=== PATIENT | male | born 1970 | race Caucasian/White ===

== ENCOUNTER 2022-09-08 16:23 | Emergency (ER) | payer OTHER ==
[~2022-09-08] VITALS: Ht 172.7 cm; Wt 65.8 kg
[2022-09-08 16:25] VITALS: BP_SYST 119
--- NOTE | 2022-09-08 17:01 | NUR ---
RECEIVED PT FROM JASVIR ESPINAL. PT BIBS WITH C/O FEVER AND PRODUCTIVE COUGH. PT WAS DX WITH INFLUENZA A ON 04/07 AND HAS TAKEN TAMILFU. RR 24, HR 112, TEMP 100.8F COOLING MEASURES IN PLACED, DENIES PAIN. SIDERAILS UP X2.
--- NOTE | 2022-09-08 17:10 | NUR ---
DR. GUTIERREZ AT BEDSIDE TO ASSESS PT.
[2022-09-08] MEDS ORDERED: ACETAMINOPHEN 500 MG TABLET ONE (17:15)
[2022-09-08] MEDS ORDERED: ASPIRIN 81 MG TAB.CHEW PO ONE (17:45)
--- NOTE | 2022-09-08 18:00 | NUR ---
# 20 gauge angiocath placed to RAC. Use of asceptic technique. Opsite placed over site. Blood return noted. Blood for lab drawn from site. Flushed with 10 cc of normal saline. No evidence of infiltration noted. Patient tolerated well.
[2022-09-08 18:15] LABS: BASOPHILS % (AUTO) 0.3 % (0.0-2.0); EOSINOPHILS % (AUTO) 0.5 % (0.0-4.0); HEMATOCRIT 40.7 % (36-54); HEMOGLOBIN 14.4 g/dL (14.0-18.0); LYMPHOCYTES # (AUTO) 1.2 K/uL (1.0-5.5); LYMPHOCYTES % (AUTO) 16.8 % (20.5-51.5); MEAN CORPUSCULAR HEMOGLOBIN 31 pg (27-31); MEAN CORPUSCULAR HGB CONC 35 % (32-36); MEAN CORPUSCULAR VOLUME 87 fL (79.0-98.0); MONOCYTES # (AUTO) 0.6 K/uL (0.0-1.0); NEUTROPHILS # (AUTO) 5.1 K/uL (1.8-7.7); NEUTROPHILS % (AUTO) 73.4 % (40.0-70.0); PLATELET COUNT (AUTO) 198 K/uL (130-430); RED BLOOD CELL COUNT(AUTO) 4.67 MIL/uL (4.2-6.2); RED CELL DISTRIBUTION WIDTH 12.9 % (9.0-15.0); WHITE BLOOD COUNT (AUTO) 6.9 K/uL (4.8-10.8)
--- NOTE | 2022-09-08 18:19 | NUR ---
EKG OBTAINED AND GIVEN TO DR. GUTIERREZ.
[2022-09-08 18:32] LABS: ALANINE AMINOTRANSFERASE 5 U/L (12-78); ALBUMIN 2.8 g/dL (3.4-4.8); ANION GAP 8 (5-15); ASPARTATE AMINOTRANSFERASE 60 U/L (10-37); CALCIUM 8.1 mg/dL (8.4-11.0); CHLORIDE 98 mmol/L (98-107); CREATININE 0.82 mg/dL (0.55-1.30); GFR AFRICAN AMERICAN 127 mL/min (>90); GLUCOSE 99 mg/dL (70-99); TOTAL BILIRUBIN 0.5 mg/dL (0.0-1.0); UREA NITROGEN, BLOOD 11 mg/dL (8-21)
[2022-09-08] MEDS ORDERED: BENZ100C92 PO (18:58)
[2022-09-08] MEDS ORDERED: ACET-2634 PO (18:58)
[2022-09-08 19:14] VITALS: BP_SYST 121
--- NOTE | 2022-09-08 19:17 | NUR ---
Patient given written and verbal discharge instructions and verbalizes understanding. ER MD discussed with patient the results and treatment provided. Patient in stable condition. ID arm band removed. IV catheter removed intact and dressing applied, no active bleeding. Rx of TYLENOL, BENZONATATE given. Patient educated on pain management and to follow up with PMD. Pain Scale 0/10. Opportunity for questions provided and answered. Medication side effect fact sheet provided.
== END 2022-09-08 19:15 | disposition home or self-care (01) ==
LOC: SED 16:23
DX: J10.1 Influenza due to other identified influenza virus with other respiratory manifestations (principal); R05.9 Cough, unspecified; R09.81 Nasal congestion; Z79.899 Other long term (current) drug therapy
CPT/HCPCS: 36415; 71045; 80053; 83880; 84484; 85025; 93005; 99285

== ENCOUNTER 2022-09-12 16:01 | Emergency (ER) | payer OTHER ==
[~2022-09-12] VITALS: Ht 172.7 cm; Wt 68.0 kg
[~2022-09-12 16:01] MED LIST: ACET-2634 PO; BENZ100C92 PO
[2022-09-12 16:09] VITALS: BP_SYST 122
[2022-09-12 17:00] LABS: BASOPHILS # (AUTO) 0.1 K/uL (0.0-0.2); BASOPHILS % (AUTO) 0.9 % (0.0-2.0); EOSINOPHILS # (AUTO) 0.3 K/uL (0.0-0.4); EOSINOPHILS % (AUTO) 2.3 % (0.0-4.0); HEMATOCRIT 39.7 % (36-54); HEMOGLOBIN 13.8 g/dL (14.0-18.0); LYMPHOCYTES # (AUTO) 1.4 K/uL (1.0-5.5); LYMPHOCYTES % (AUTO) 12.3 % (20.5-51.5); MEAN CORPUSCULAR HEMOGLOBIN 31 pg (27-31); MEAN CORPUSCULAR HGB CONC 35 % (32-36); MEAN CORPUSCULAR VOLUME 88 fL (79.0-98.0); MONOCYTES # (AUTO) 1.2 K/uL (0.0-1.0); MONOCYTES % (AUTO) 10.4 % (1.7-9.3); NEUTROPHILS # (AUTO) 8.4 K/uL (1.8-7.7); NEUTROPHILS % (AUTO) 74.1 % (40.0-70.0); PLATELET COUNT (AUTO) 429 K/uL (130-430); RED BLOOD CELL COUNT(AUTO) 4.49 MIL/uL (4.2-6.2); RED CELL DISTRIBUTION WIDTH 12.9 % (9.0-15.0); WHITE BLOOD COUNT (AUTO) 11.3 K/uL (4.8-10.8)
[2022-09-12 17:23] LABS: ANION GAP 6 (5-15); CALCIUM 8.1 mg/dL (8.4-11.0); CHLORIDE 99 mmol/L (98-107); GFR AFRICAN AMERICAN 114 mL/min (>90); GLUCOSE 104 mg/dL (70-99); UREA NITROGEN, BLOOD 9 mg/dL (8-21)
[2022-09-12 17:28] LABS: ALANINE AMINOTRANSFERASE 64 U/L (12-78); ALBUMIN 2.5 g/dL (3.4-4.8); ASPARTATE AMINOTRANSFERASE 39 U/L (10-37); TOTAL BILIRUBIN 0.3 mg/dL (0.0-1.0)
[2022-09-12] MEDS ORDERED: AZITHROMYCIN 250 MG TABLET PO ONE (18:30)
[2022-09-12] MEDS ORDERED: IPRATROPIUM/ALBUTEROL SULFATE 3 ML AMPUL.NEB (DUONEB) INH ONE (18:30)
[2022-09-12] MEDS ORDERED: AMOXICILLIN/POTASSIUM CLAV 875 MG TABLET PO ONE (18:30)
[2022-09-12] MEDS ORDERED: predniSONE 20 MG TABLET PO ONE (18:30)
[2022-09-12] MEDS ORDERED: IBUPROFEN 800 MG TABLET PO ONE (18:30)
[2022-09-12] MEDS ORDERED: ALBMDI INH ×3 (19:36→20:46)
[2022-09-12] MEDS ORDERED: AUG875 PO ×3 (19:36→20:46)
[2022-09-12] MEDS ORDERED: ZIT250 PO ×3 (19:36→20:46)
[2022-09-12] MEDS ORDERED: NACL 0.9% 1,000 ML IV ONE (20:00)
[2022-09-12] MEDS ORDERED: PSEU120T57 PO ×2 (20:31→20:46)
[2022-09-12 20:56] VITALS: BP_SYST 122
== END 2022-09-12 20:56 | disposition home or self-care (01) ==
LOC: SED 16:01
DX: J18.9 Pneumonia, unspecified organism (principal); J45.909 Unspecified asthma, uncomplicated; R06.02 Shortness of breath; R05.9 Cough, unspecified; F15.10 Other stimulant abuse, uncomplicated; Z79.899 Other long term (current) drug therapy; Z20.822 Contact with and (suspected) exposure to COVID-19
CPT/HCPCS: 99285; 96360; 71045; 87426; 80053; 83880; 85025; 85379; 87040; 84484; 36415; 93005; 94640; 94760; 83605; 87804 ×2; J7512; J7030; Q0144